=== PATIENT | female | born 1955 | race Caucasian/White ===

== ENCOUNTER 2025-06-16 14:49 | Observation (INO) ==
[2025-06-16] MEDS ORDERED: VANCOMYCIN CONSULT ACTIVE PRN ×3 (16:05→18:39)
--- NOTE | 2025-06-16 16:08 | Emergency Department Note ---
Impression & Plan Cellulitis of right lower extremity, Lower extremity edema, Venous ulcer of right leg ED Provider Note NAME: CAPRICE SONI AGE: 70 SEX: F : 1955 ARRIVES VIA: Walk-In INFORMANT: Patient ED PROVIDER(S): Skip Bergeron DO CHIEF COMPLAINT: Right lower extremity cellulitis HPI: Patient is a 70-year-old female who presents to the ER for right lower extremity cellulitis with an ulcer. She was given a dose of Dalvance while here on the and discharged. It has not improved and consequently she was referred back in for possible repeat dose. Patient denies any headache or change in vision. No chest pain or shortness of breath. No dysuria, urgency or frequency. No other exacerbating or remitting factors. ADDITIONAL HISTORY OBTAINED: Per HPI Chronic Medical/Social Conditions Affecting Care: Per HPI PAST MEDICAL HISTORY:See Below PAST SURGICAL HISTORY:See Below FAMILY HISTORY:See Below SOCIAL HISTORY:See Below HOME MEDICATIONS:See Below ALLERGIES:See Below VITALS:See Below PHYSICAL EXAMINATION: GENERAL: Sitting up in bed, alert, well appearing, well nourished, no distress, non-toxic EYE EXAM: normal conjunctiva. OROPHARYNX: no exudate, no erythema, lips, buccal mucosa, and tongue normal and mucous membranes are moist NECK: supple, no nuchal rigidity, no adenopathy, non-tender LUNGS: Clear to auscultation. Normal chest wall mechanics HEART: no murmurs, S1 normal and S2 normal ABDOMEN: abdomen soft, non-tender, normo-active bowel sounds, no masses, no rebound or guarding. SKIN: Erythema of the right lower extremity with ulcerations within the level of the right medial calf. Skin is warm and tender. Tracks up to just below the knee. UPPER EXTREMITIES: upper extremities are grossly normal. LOWER EXTREMITIES: No pitting edema. NEURO EXAM: Normal sensorium, cranial nerves II-XII grossly intact, normal speech, no gross weakness of arms, no gross weakness of legs. MEDICAL DECISION MAKING: Patient is a 70-year-old female who presents to the ER for cellulitis of her right lower extremity following receiving Dalvance about 7 to 8 days ago. Redness has gotten worse. IV was established and blood work was obtained. Labs showed no significant leukocytosis or anemia. BMP LFTs bilirubin was unremarkable. Discussed with pharmacist and I agree that this likely consistent with a failure of outpatient treatment. She was given IV vancomycin and Rocephin. Updated bedside. Discussed case with the hospitalist for further evaluation management treatment. Consults/Care Managements Discussions: Per MDM Triage Nursing notes reviewed. Limited review of prior medical records performed Vital Signs: reviewed and remarkable for HTN Differential diagnosis: Cellulitis, abscess, MRSA infection, DVT, necrotizing fasciitis, dermatitis, drug eruption, allergic reaction, as well as other pathologies. ER treatment provided: See below Diagnostics interpreted by me include EKG and cardiac monitoring as listed below: -Cardiac Monitoring: An order was placed for continuous cardiac monitoring. The monitor shows a rate of 80 with sinus rhythm. -ECG: none -Laboratory studies:Interpreted by me as stated above in MDM and shown below. Imaging studies: Xrays: As interpreted by me:none CTs show: none Procedures:none Critical Care: None Past Med/Surg History Problem List (Updated 06/16/25 @ 20:01 by Skip Bergeron DO) Leg wound, right (Acute) Cellulitis (Acute) Cellulitis of right lower extremity (Acute) Lower extremity edema (Acute) Venous ulcer of right leg (Acute) Class 3 severe obesity due to excess calories with body mass index (BMI) of 45.0 to 49.9 in adult Chronic pruritic rash in adult Right calf pain Pain and swelling of right lower leg Wound of right leg Medical History FH: bilateral hip replacements Surgical History History of cholecystectomy Family History Mother Breast cancer Sister Breast cancer Denies family history of Ovarian cancer Prostate cancer Myocardial infarction Colorectal cancer Social History Smoking Status: Never smoker Do You Dip or Chew Tobacco: No; Hx Alcohol Use: Yes Alcohol Intake Frequency: 2-3 x/Week Hx Substance Use: No Preferred Language: Israeli Visual Impairment: Limited Hearing Ability: Normal Didactic Instructor Required: No Beliefs That Will Affect Care: None Current Living Situation: Alone Feels Safe at Home: Yes Diet: regular caffeine: Yes Dental Care, Regularly: No Physical Activity Frequency Comment: "when I can" Seatbelt Use: always Sunscreen Use: Yes (occasionally ) Assistive Devices: CPAP and Glasses Allergies Allergies Allergy/AdvReac Type Severity Reaction Status Date / Time ammonia Allergy Unknown IN AIR,ON Unverified 06/16/25 13:14 SKIN-RASH/SOB amoxicillin Allergy Unknown ITCHY,RASH Unverified 06/16/25 13:14 aspirin Allergy Unknown LIGHTHEADED, Verified 06/16/25 13:14 RESP. DIFF Sulfa (Sulfonamide Allergy Unknown ITCHY RASH Unverified 06/16/25 13:14 Antibiotics) tramadol AdvReac Unknown DIZZINESS Unverified 06/16/25 13:14 Home Meds Home Medications Medication Instructions Recorded Confirmed pyridoxine (vitamin B6) 100 mg 100 mg PO DAILY 05/19/25 06/16/25 tablet diphenhydramine HCl 25 mg tablet 25 mg PO TID PRN Allergy Symptoms 06/08/25 06/16/25 (Benadryl Allergy) acetaminophen 650 mg 1,300 mg PO TID 06/13/25 06/16/25 tablet,extended release ascorbic acid (vitamin C) 500 mg 500 mg PO DAILY 06/16/25 06/16/25 capsule (Vitamin C With Hali Hips) beta carotene 30 mg capsule 30 mg PO DAILY 06/16/25 06/16/25 cyanocobalamin (vitamin B-12) 1,000 mcg PO DAILY 06/16/25 06/16/25 1,000 mcg tablet (Vitamin B-12) doxycycline hyclate 100 mg tablet 100 mg PO BID 06/16/25 06/16/25 Previous Rx's Medication Instructions Recorded hydroxyzine HCl 25 mg tablet 25 mg PO TID PRN itching #90 tabs 05/19/25 furosemide 20 mg tablet 20 mg PO DAILY #30 tabs 06/10/25 Results & Data (ED) Vital Signs Vital Signs - 24 hr 06/16/25 15:04 06/16/25 15:51 06/16/25 17:06 Temperature 36.7 C Temperature Source Temporal Artery Scan Pulse Rate 89 Pulse Rate [Finger] 84 Respiratory Rate 18 18 Respiratory Effort / Characteristics Non-Labored Spontaneous Non-Labored Spontaneous Respiratory Depth Normal Normal Respiratory Pattern Regular Regular Blood Pressure 157/89 H Blood Pressure [Right Arm] 172/96 H Blood Pressure Mean 111 Blood Pressure Mean [Right Arm] 121 Pulse Oximetry 97 95 97 Oxygen Delivery Method Room Air Room Air Room Air Sepsis Recent Fever Within 48 Hours No Sepsis New/Unexplained Change in Mental Status N/A Sepsis Action Taken by Nursing No Action Required Laboratory Data 06/16/25 16:20 06/16/25 16:20 Lab Results 06/16/25 Range/Units 16:20 WBC 6.31 (4.8-10.8) K/ul RBC 5.12 (4.20-5.40) M/uL Hgb 14.2 (12.0-16.0) g/dl Hct 43.5 (37.0-47.0) % MCV 85.0 (80.0-100.0) fL MCH 27.7 (25.0-34.0) pg MCHC 32.6 (32.0-36.0) g/dL RDW Std Deviation 44.1 (36.4-46.3) fL RDW Coeff of [place] 14.2 (11.5-14.5) % Plt Count 336 (130-400) K/uL MPV 10.0 (9.4-12.4) fL Immature Gran % (Auto) 0.2 % Neut % (Auto) 46.6 % Lymph % (Auto) 39.3 % [place] % (Auto) 8.2 % Eos % (Auto) 4.6 % Baso % (Auto) 1.1 % Neut # (Auto) 2.94 (1.40-6.50) K/uL Lymph # (Auto) 2.48 (1.20-3.40) K/uL [place] # (Auto) 0.52 (0.11-0.59) K/uL Eos # (Auto) 0.29 (0.00-0.50) K/uL Baso # (Auto) 0.07 (0.00-0.20) K/uL Immature Gran # (Auto) 0.01 (0.01-0.20) K/uL Sodium 141 (136-145) mmol/L Potassium 3.5 (3.5-5.1) mmol/L Chloride 105 (98-107) mmol/L Carbon Dioxide 27 (21-32) mmol/L Anion Gap 9 (3-11) BUN 20 (6-23) mg/dl Creatinine 0.74 (0.6-1.2) mg/dl Est Cr Clr Drug Dosing 89.6 ml/min eGFR 88.07 BUN/Creatinine Ratio 27.0 H (10-20) Glucose 93 (70-99(Fasting)) mg/dl Calcium 9.2 (8.6-10.3) mg/dl Total Bilirubin 0.5 (0.2-1.0) mg/dl AST 24 (13-39) U/L ALT 22 (7-52) U/L Alkaline Phosphatase 88 (34-104) U/L Total Protein 7.9 (6.0-8.3) gm/dl Albumin 4.0 (3.4-5.0) gm/dl Globulin 3.9 (2.5-4.0) gm/dl Albumin/Globulin Ratio 1.0 (0.9-2) Administered Medications Discontinued Medications Ceftriaxone Sodium (Rocephin) 2,000 mg in 50 mls @ 100 mls/hr IV NOW STA Stop: 06/16/25 16:34 Last Infusion: 06/16/25 17:31 Dose: Infused Documented By: Admin: 06/16/25 16:55 Dose: 100 mls/hr [place] [facility] [place]com[place] HCl 2,250 mg/ (Sodium Chloride) 545 mls @ 200 mls/hr IV NOW ONE Stop: 06/16/25 18:48 Last Admin: 06/16/25 17:37 Dose: 200 mls/hr Documented By: BRANDON Discharge Plan Visit Data Chief Complaint: Wound Recheck Stated Complaint: ANTIBIOTIC IV NEEDED FOR WOUND, WOUND CLINIC REF ED Provider: Skip Bergeron Discharge Problem: Cellulitis of right lower extremity, Lower extremity edema, Venous ulcer of right leg Patient Disposition: Admitted As Inpatient Condition: Fair Discharge Instructions Interventions: ED Discharge Assessment Last Done: 06/16/25 18:40
[2025-06-16 16:40] LABS: Hematocrit (blood only) 43.5 % (37.0-47.0); Hemoglobin 14.2 g/dl (12.0-16.0); Immature Granulocytes # (auto) 0.01 K/uL (0.01-0.20); Immature Granulocytes % (auto) 0.2 %; Mean Corpuscular Hemoglobin 27.7 pg (25.0-34.0); Mean Corpuscular Volume 85.0 fL (80.0-100.0); Platelet Count 336 K/uL (130-400); RDW Standard Deviation 44.1 fL (36.4-46.3); Red Blood Count 5.12 M/uL (4.20-5.40); White Blood Count 6.31 K/ul (4.8-10.8)
[2025-06-16] MEDS: cefTRIAXone SODIUM 2,000 MG/50 ML BAG IV STA (16:55)
[2025-06-16 16:57] LABS: Alanine Aminotransferase 22.0 U/L (7-52); Albumin Globulin Ratio 1.0 (0.9-2); Alkaline Phosphatase 88.0 U/L (34-104); Anion Gap 9.0 (3-11); Bilirubin,Total 0.5 mg/dl (0.2-1.0); Blood Urea Nitrogen 20.0 mg/dl (6-23); Calcium 9.2 mg/dl (8.6-10.3); Carbon Dioxide 27.0 mmol/L (21-32); Chloride 105.0 mmol/L (98-107); Creatinine Clr Calc Pharmacy 89.6 ml/min; Globulin 3.9 gm/dl (2.5-4.0); Glucose 93.0 mg/dl (70-99(Fasting)); Potassium 3.5 mmol/L (3.5-5.1); Sodium 141.0 mmol/L (136-145); Total Protein 7.9 gm/dl (6.0-8.3)
--- NOTE | 2025-06-16 17:12 | History & Physical Report ---
Date of Service June 16, 2025 Assessment & Plan (1) Leg wound, right: (2) Cellulitis: (3) Cellulitis of right lower extremity: (4) Lower extremity edema: (5) Venous ulcer of right leg: (6) Class 3 severe obesity due to excess calories with body mass index (BMI) of 45.0 to 49.9 in adult: (7) Chronic pruritic rash in adult: Plan 70 female Super Morbid obesity chronic right lower extremity wound follows with wound care clinic, right lower extremity venous ulcers Hip replacements who presents with worsening of right lower extremity cellulitis. Recently treated with Dalvance for MRSA cellulitis of the RLE On 06/08 in ED here and then discharged thereafter. Worked up in ED with impression of failed Dalvance therapy per ED physician. No signs of sepsis. Empirically given vancomycin and rocephin and admitted to hospitalist service. Chronic wound with worsening MRSA cellulitis failed outpatient Dalvance Supportive care Wound care consultation Follow blood cultures Empirical IV vancomycin Rocephin. Pharmacy for dosing. ID consultation Lower extremity duplex Chronic lower extremity venous stasis ulcers Wound care Dietitian to optimize nutrition DVT prophylaxis Full code Disposition admission anticipate at least 48 hours hospitalization History of Present Illness Chief Complaint: Worsening cellulitis Primary Care Provider: Geneva Hester MD 70 female Super Morbid obesity chronic right lower extremity wound follows with wound care clinic, right lower extremity venous ulcers Hip replacements who presents with worsening of right lower extremity cellulitis. Recently treated with Dalvance for MRSA cellulitis of the RLE On 06/08 in ED here and then discharged thereafter. Worked up in ED with impression of failed Dalvance therapy per ED physician. No signs of sepsis. Empirically given vancomycin and cefepime and admitted to hospitalist service. She denies no systemic symptoms. No fevers chills nausea Malaise anorexia lightheadedness dyspnea or any other symptoms. Awaiting completion of home med rec Allergies Allergy/AdvReac Type Severity Reaction Status Date / Time ammonia Allergy Unknown IN AIR,ON Unverified 06/16/25 13:14 SKIN-RASH/SOB amoxicillin Allergy Unknown ITCHY,RASH Unverified 06/16/25 13:14 aspirin Allergy Unknown LIGHTHEADED, Verified 06/16/25 13:14 RESP. DIFF Sulfa (Sulfonamide Allergy Unknown ITCHY RASH Unverified 06/16/25 13:14 Antibiotics) tramadol AdvReac Unknown DIZZINESS Unverified 06/16/25 13:14 Home Medications Medication Instructions Recorded Confirmed Type ascorbic acid (vitamin C) [Vitamin 1 tab PO DAILY 05/19/25 06/16/25 History C With Hali Hips] beta carotene 1 cap PO QAM 05/19/25 06/16/25 History hydroxyzine HCl 25 mg tablet 25 mg PO TID PRN itching #90 tabs 05/19/25 06/16/25 Rx mecobalamin (vitamin B12) 2 tab PO DAILY 05/19/25 06/16/25 History pyridoxine (vitamin B6) 100 mg 100 mg PO DAILY 05/19/25 06/16/25 History tablet Benadryl Allergy 0 mg PO Q4H PRN allergies 06/08/25 06/16/25 History furosemide 20 mg tablet 20 mg PO DAILY #30 tabs 06/10/25 06/16/25 Rx acetaminophen 650 mg 1,300 mg PO TID 06/13/25 06/16/25 History tablet,extended release Past Med/Surg History Problem List Leg wound, right (Acute) Cellulitis (Acute) Cellulitis of right lower extremity (Acute) Lower extremity edema (Acute) Venous ulcer of right leg (Acute) Class 3 severe obesity due to excess calories with body mass index (BMI) of 45.0 to 49.9 in adult Chronic pruritic rash in adult Right calf pain Pain and swelling of right lower leg Wound of right leg Medical History FH: bilateral hip replacements Surgical History History of cholecystectomy Family History Mother Breast cancer Sister Breast cancer Denies family history of Ovarian cancer Prostate cancer Myocardial infarction Colorectal cancer Social History Smoking Status: Never smoker Do You Dip or Chew Tobacco: No; Hx Alcohol Use: Yes Alcohol Intake Frequency: 2-3 x/Week Hx Substance Use: No Preferred Language: Turkmen Visual Impairment: Limited Hearing Ability: Normal Nutrition Professor Required: No Beliefs That Will Affect Care: None Current Living Situation: Alone Feels Safe at Home: Yes Diet: regular caffeine: Yes Dental Care, Regularly: No Physical Activity Frequency Comment: "when I can" Seatbelt Use: always Sunscreen Use: Yes (occasionally ) Assistive Devices: CPAP and Glasses Review of Systems Review of Systems: Negative except as in HPI Physical Exam Physical Exam: The patient's vital signs were reviewed. She is afebrile, hypertensive. She is asymptomatic with this. Wound #1 is a clustered measurement of venous ulcers measuring 5.8 x 8.5 x 0.2 cm. This is an 52 % decrease in total surface area since last visit. Wounds are covered with eschar and slough. Moderate drainage. No odor. Periwound area is markedly erythematous, hot to touch. In addition the patient also has evidence of contact dermatitis more proximal to the wound. Leg is markedly edematous right lower extremity with ulcerations within the level of the right medial calf. Results & Data Results & Data Vital Signs (Past 12 Hours) Vital Signs Temp Pulse Pulse Resp BP BP Pulse Ox 06/16/25 17:06 97 06/16/25 15:51 84 18 172/96 H 95 06/16/25 15:04 36.7 C 89 18 157/89 H 97 O2 Del Method 06/16/25 17:06 Room Air 06/16/25 15:51 Room Air 06/16/25 15:04 Room Air Laboratory Results Abnormal Labs 06/16/25 16:20 BUN/Creatinine Ratio 27.0 H PG Care Time/CCT Total # of Minutes Spent Total Time Spent with Patient: Total time spent is greater than 50% in coordination of care (as documented) at patient's floor/unit and/or counseling patient: Coding Level of Care Code 41584 INT INP/OBS CARE 2/55MIN Diagnoses Leg wound, right S81.801A Encounter type: initial encounter Cellulitis L03.115 Laterality: right Site of cellulitis: extremity Site of cellulitis of extremity: lower extremity Cellulitis of right lower extremity L03.115 Lower extremity edema R60.0 Venous ulcer of right leg I83.019; L97.919 Class 3 severe obesity due to excess calories with body mass index (BMI) of 45.0 to 49.9 in adult E66.813; Z68.42 Chronic 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 (1) Leg wound, right Encounter type: initial encounter Qualified Code(s): S81.801A - Unspecified open wound, right lower leg, initial encounter (2) Cellulitis Laterality: right Site of cellulitis: extremity Site of cellulitis of extremity: lower extremity Qualified Code(s): L03.115 - Cellulitis of right lower limb
[2025-06-16] MEDS: VANCOMYCIN HCL 2,250 MG in SODIUM CHLORIDE 0.9% 500 ML IV ONE (17:37)
[2025-06-16] MEDS ORDERED: ONDANSETRON INJ 2 MG/ML 2 ML VIAL IV PRN (18:39)
[2025-06-16] MEDS ORDERED: MAGNESIUM HYDROXIDE SUSP 30 ML UDC PO PRN (18:39)
[2025-06-16] MEDS ORDERED: ALUMINUM/MAGNESIUM SUSP 30 ML UDC PO PRN (18:39)
[2025-06-16] MEDS ORDERED: POLYETHYLENE (MIRALAX) 17 GM PACK PO PRN (18:39)
--- NOTE | 2025-06-16 19:30 | Pharmacy Report ---
Pharmacy PK ABX Note - Date of Service June 16, 2025 - Assessment and Plan Assessment 70 year old F started on vancomycin and rocephin for LE cellulitis. Follows with wound care clinic, recently treated with Dalvance for MRSA cellulitis on 06/08. ID consulted. Plan Vancomycin * Loading dose: 2250 mg IV x 1 * Maintenance dose: 1000 mg IV every 12 hours * Regimen is predicted to achieve target AUC/OSCAR of 400-600 mg/L.hr * Will plan to collect vancomycin level if continued >48 hours Pharmacy will continue to follow and will adjust dose/frequency as necessary. Thank you. Pharmacy has transitioned to AUC monitoring for vancomycin. AUC/OSCAR is the preferred PK/PD target and is associated with decreased risk of nephrotoxicity compared to traditional trough targets.
[2025-06-16] MEDS: ENOXAPARIN INJ 40 MG/0.4 ML SYR SQ SCH (20:50)
[2025-06-16 21:07] LABS: Hematocrit (blood only) 44.4 % (37.0-47.0); Hemoglobin 14.9 g/dl (12.0-16.0); Mean Corpuscular Hemoglobin 28.8 pg (25.0-34.0); Mean Corpuscular Volume 85.7 fL (80.0-100.0); Platelet Count 353 K/uL (130-400); RDW Standard Deviation 44.6 fL (36.4-46.3); Red Blood Count 5.18 M/uL (4.20-5.40); White Blood Count 6.61 K/ul (4.8-10.8)
[2025-06-16] MEDS: diphenhydrAMINE Capsule 25 MG CAP PO PRN (21:24)
[2025-06-16 21:27] LABS: Alanine Aminotransferase 23.0 U/L (7-52); Albumin Globulin Ratio 1.0 (0.9-2); Alkaline Phosphatase 87.0 U/L (34-104); Anion Gap 10.0 (3-11); Bilirubin,Total 0.4 mg/dl (0.2-1.0); Blood Urea Nitrogen 17.0 mg/dl (6-23); Calcium 9.2 mg/dl (8.6-10.3); Carbon Dioxide 25.0 mmol/L (21-32); Chloride 107.0 mmol/L (98-107); Creatinine Clr Calc Pharmacy 88.4 ml/min; Globulin 4.0 gm/dl (2.5-4.0); Glucose 115.0 mg/dl (70-99(Fasting)); Potassium 3.2 mmol/L (3.5-5.1); Sodium 142.0 mmol/L (136-145); Total Protein 8.1 gm/dl (6.0-8.3)
[2025-06-16] MEDS: ACETAMINOPHEN 325 MG TAB PO PRN (22:54)
[2025-06-16 23:04] VITALS: RESP 18
[2025-06-17] MEDS: VANCOMYCIN HCL / NSS 1,000 MG/270 ML BAG IV SCH (00:24)
--- NOTE | 2025-06-17 01:22 | Ultrasound Report ---
Exam(s): US VENOUS BILATERAL LOWER EXTREMITIES EXAM: US Duplex Bilateral Lower Extremities Veins CLINICAL HISTORY: Reason for exam: r/o clots. TECHNIQUE: Real-time duplex ultrasound scan of the bilateral lower extremity veins integrating B-mode two-dimensional vascular structure, Doppler spectral analysis, color flow Doppler imaging and compression. COMPARISON: US Duplex Lower Extremity Veins dated 05/19/2025 right lower extremity venous ultrasound FINDINGS: Right deep veins: Unremarkable. No DVT in the right common femoral, femoral, proximal deep femoral or popliteal veins. The veins demonstrate normal color flow, are normally compressible, with normal phasic flow and/or augmentation response. Right superficial veins: Unremarkable. No thrombus in the visualized right great saphenous vein. Left deep veins: Unremarkable. No DVT in the left common femoral, femoral, proximal deep femoral or popliteal veins. The veins demonstrate normal color flow, are normally compressible, with normal phasic flow and/or augmentation response. Left superficial veins: Unremarkable. No thrombus in the visualized left great saphenous vein. Soft tissues: Bilateral calf edema. No popliteal cyst. IMPRESSION: No DVT in bilateral lower extremities. Electronically signed by: Jimi Rock M.D. 06/17/25 01:21 AM
[2025-06-17 06:41] LABS: Hematocrit (blood only) 36.8 % (37.0-47.0); Hemoglobin 12.6 g/dl (12.0-16.0); Mean Corpuscular Hemoglobin 28.8 pg (25.0-34.0); Mean Corpuscular Volume 84.2 fL (80.0-100.0); Platelet Count 302 K/uL (130-400); RDW Standard Deviation 43.8 fL (36.4-46.3); Red Blood Count 4.37 M/uL (4.20-5.40); White Blood Count 6.51 K/ul (4.8-10.8)
[2025-06-17 07:08] LABS: Alanine Aminotransferase 18.0 U/L (7-52); Albumin Globulin Ratio 1.2 (0.9-2); Alkaline Phosphatase 66.0 U/L (34-104); Anion Gap 6.0 (3-11); Bilirubin,Total 0.4 mg/dl (0.2-1.0); Blood Urea Nitrogen 16.0 mg/dl (6-23); Calcium 8.6 mg/dl (8.6-10.3); Carbon Dioxide 25.0 mmol/L (21-32); Chloride 109.0 mmol/L (98-107); Creatinine Clr Calc Pharmacy 90.6 ml/min; Globulin 3.0 gm/dl (2.5-4.0); Glucose 104.0 mg/dl (70-99(Fasting)); Potassium 3.8 mmol/L (3.5-5.1); Sodium 140.0 mmol/L (136-145); Total Protein 6.5 gm/dl (6.0-8.3)
[2025-06-17 07:25] VITALS: BP 147/93; PULSE 86; TEMP 97.9; O2SAT 95
--- NOTE | 2025-06-17 11:52 | Hospitalist Progress Note ---
Date of Service June 17, 2025 Assessment & Plan (1) Leg wound, right: (2) Cellulitis: (3) Cellulitis of right lower extremity: (4) Lower extremity edema: (5) Venous ulcer of right leg: (6) Class 3 severe obesity due to excess calories with body mass index (BMI) of 45.0 to 49.9 in adult: (7) Chronic pruritic rash in adult: Plan 70 female Super Morbid obesity chronic right lower extremity wound follows with wound care clinic, right lower extremity venous ulcers Hip replacements who presents with worsening of right lower extremity cellulitis. Recently treated with Dalvance for MRSA cellulitis of the RLE On 06/08 in ED here and then discharged thereafter. Worked up in ED with impression of failed Dalvance therapy per ED physician. No signs of sepsis. Empirically given vancomycin and rocephin and admitted to hospitalist service. Chronic wound with worsening MRSA cellulitis failed outpatient Dalvance Supportive care Wound care consultation Blood cultures NTD Empirical IV vancomycin Rocephin. Pharmacy for dosing. ID consultation Lower extremity duplex Negative Chronic lower extremity venous stasis ulcers Wound care Dietitian to optimize nutrition DVT prophylaxis Full code Disposition Likely discharge home in 1 to 2 days Admission and Anticipated Discharge Date Admission Date: June 16, 2025 Subjective Feels like she is doing better. She shows me cellulitis is improving in right leg. No fevers chills nausea or any other symptoms. Discussed case with ID attending Review of Systems Review of Systems: Negative except as in HPI Physical Exam Physical Exam: The patient's vital signs were reviewed. She is afebrile, hypertensive. She is asymptomatic with this. Wound #1 is a clustered measurement of venous ulcers measuring 5.8 x 8.5 x 0.2 cm. This is an 52 % decrease in total surface area since last visit. Wounds are covered with eschar and slough. Moderate drainage. No odor. Periwound area is markedly erythematous, hot to touch. In addition the patient also has evidence of contact dermatitis more proximal to the wound. Leg is markedly edematous right lower extremity with ulcerations within the level of the right medial calf. Results & Data Results & Data Vital Signs (Past 12 Hours) Vital Signs Temp Pulse Resp BP Pulse Ox O2 Del Method 06/17/25 07:43 Room Air 06/17/25 07:24 36.6 C 86 18 147/93 H 95 Room Air PG Care Time/CCT Total # of Minutes Spent Total Time Spent with Patient: Total time spent is greater than 50% in coordination of care (as documented) at patient's floor/unit and/or counseling patient: Coding Level of Care Code 07174 SUB INP/OBS CARE 2/35MIN Diagnoses Leg wound, right S81.801A Encounter type: initial encounter Cellulitis L03.115 Laterality: right Site of cellulitis: extremity Site of cellulitis of extremity: lower extremity Cellulitis of right lower extremity L03.115 Lower extremity edema R60.0 Venous ulcer of right leg I83.019; L97.919 Class 3 severe obesity due to excess calories with body mass index (BMI) of 45.0 to 49.9 in adult E66.813; Z68.42 Chronic 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 (1) Leg wound, right Encounter type: initial encounter Qualified Code(s): S81.801A - Unspecified open wound, right lower leg, initial encounter (2) Cellulitis Laterality: right Site of cellulitis: extremity Site of cellulitis of extremity: lower extremity Qualified Code(s): L03.115 - Cellulitis of right lower limb
--- NOTE | 2025-06-17 13:03 | Infectious Disease Consult ---
Date of Consultation June 17, 2025 Assessment & Plan (1) Cellulitis of right lower extremity: (2) Leg wound, right: Plan Problems: #RLE cellulitis Micro: 06/16 BCx x2: pending 06/08 RLE wound cx: MRSA (S tetra, TMP/SMX) 06/01 RLE wound cx: MRSA (S tetra, TMP/SMX) Abx: Vanc 06/16 - present Ceftriaxone 06/16 - present Dalbavancin 1500 mg x 1 06/08 70 yo F with obesity, bilateral hip replacements who presented on 06/16 with concern for worsened RLE cellulitis and a second dose of dalbavancin. She was initially seen in the ED on 05/09 for RLE erythema for which she was concerned for an allergic reaction to ammonia. Noted itching of her RLE, and tried putting rubbing alcohol on her RLE. There was concern for developing RLE and she was prescribed cephalexin 500 mg PO QID x 7 days. She was then seen on 05/19 in primary care clinic with concern for RLE cellulitis vs contact dermatitis, and was prescribed doxycycline 100 mg PO BID x 10 days. Venous doppler was negative for DVT. She was seen again in primary care clinic on 05/25 for follow-up, where erythema was noted to be improved and she was referred to wound care clinic. She was first seen in wound care clinic on 06/01 for RLE venous ulcer. The wound was debrided and cultured, and grew MRSA susceptible to tetracycline. She was again seen in wound care clinic 06/08 at which time wounds appeared to have deteriorated, with worsened cellulitis. She was advised to present to the ED, where her vitals were stable and she had no leukocytosis with WBC 7.3. She was given a dose of dalbavance 1500 mg x 1 and discharged. She was seen in wound care clinic again on 06/16, where it was noted that her wounds and cellulitis were improved, although with continued erythema/induration. She was advised to present to the ED for a second dose of dalbavancin. On presentation, pt was afebrile, VSS. Labs showed WBC 6.6. Venous doppler without DVT. She was started on ceftriaxone and vancomycin. Pt reports improvement today. Discussion: Dalbavancin 1500 mg IV X 1 is very effective for MRSA/gram positive cellulitis, and remains in the system for ~2 week course of treatment. I spoke with Dr. Ambar Arcos of wound care clinic, who saw the pt on 06/08 and 06/16, and she felt that the RLE had improved in appearance. We discussed that one dose of dalbavancin 1500 mg is sufficient for a 2 week course of treatment for skin/soft tissue infection, and that no second dose was needed to complete her course. Recommendations: - Do not think pt requires further antibiotics for treatment of the RLE cellulitis. Appears to be improved on pictures from 06/16 and 06/17, compared to 06/08. She has received 1 dose of dalbavancin 1500 mg which will remain in her system for 2 weeks Will sign off. Consultation Information This patient recommendation is based on a telemedicine consult request which was completed asynchronously through chart review and information provided by the primary physician. The patient was not seen or examined today. The evaluation is consultative in nature and all patient care and treatment decisions can either be accepted or rejected by the patient's primary hospital-based treating physician using their own independent medical judgment for their patient. Electrical System Specialist contact information: Please call [facility] . (Phone Number For Physician Use Only) Time Spent Reviewing Chart: 31+ minutes History of Present Illness Reason for Consultation: LE cellulitis Attending Physician: Mary Heredia MD History of Present Illness 70 yo F with obesity, chronic RLE venous ulcer for which she follows with the wound care clinic, bilateral hip replacements who presented on 06/16 with concern for worsened RLE cellulitis. She was seen in the ED on 05/09 for RLE erythema for which she was concerned for an allergic reaction to ammonia. Noted itching of her RLE, and tried putting rubbing alcohol on her RLE. There was concern for developing RLE and she was prescribed cephalexin 500 mg PO QID x 7 days. She was then seen on 05/19 in primary care clinic with concern for RLE cellulitis vs contact dermatitis, and was prescribed doxycycline 100 mg PO BID x 10 days. Venous doppler was negative for DVT. She was seen again in primary care clinic on 05/25 for follow-up, where erythema was noted to be improved and she was referred to wound care clinic. She was first seen in wound care clinic on 06/01 for RLE venous ulcer. The wound was debrided and cultured, and grew MRSA susceptible to tetracycline. She was again seen in wound care clinic 06/08 at which time wounds appeared to have deteriorated, with worsened cellulitis. She was advised to present to the ED. She presented to the ED 06/08, where she noted initial improvement in the cellulitis, but it worsened again. Her vitals were stable and she had no leukocytosis with WBC 7.3. She was given a dose of dalbavance 1500 mg x 1 and discharged. She was seen in wound care clinic again on 06/16, where it was noted that her wounds and cellulitis were improved, although with continued erythema/induration. She was advised to present to the ED for a second dose of dalbavancin. On presentation, pt was afebrile, VSS. Labs showed WBC 6.6. Venous doppler without DVT. She was started on ceftriaxone and vancomycin. Pt reports improvement today. Allergies Allergy/AdvReac Type Severity Reaction Status Date / Time ammonia Allergy Unknown IN AIR,ON Unverified 06/16/25 13:14 SKIN-RASH/SOB amoxicillin Allergy Unknown ITCHY,RASH Unverified 06/16/25 13:14 aspirin Allergy Unknown LIGHTHEADED, Verified 06/16/25 13:14 RESP. DIFF Sulfa (Sulfonamide Allergy Unknown ITCHY RASH Unverified 06/16/25 13:14 Antibiotics) tramadol AdvReac Unknown DIZZINESS Unverified 06/16/25 13:14 Home Medications Medication Instructions Recorded Confirmed Type hydroxyzine HCl 25 mg tablet 25 mg PO TID PRN itching #90 tabs 05/19/25 06/16/25 Rx pyridoxine (vitamin B6) 100 mg 100 mg PO DAILY 05/19/25 06/16/25 History tablet diphenhydramine HCl 25 mg tablet 25 mg PO TID PRN Allergy Symptoms 06/08/25 06/16/25 History (Benadryl Allergy) furosemide 20 mg tablet 20 mg PO DAILY #30 tabs 06/10/25 06/16/25 Rx acetaminophen 650 mg 1,300 mg PO TID 06/13/25 06/16/25 History tablet,extended release ascorbic acid (vitamin C) 500 mg 500 mg PO DAILY 06/16/25 06/16/25 History capsule (Vitamin C With Hali Hips) beta carotene 30 mg capsule 30 mg PO DAILY 06/16/25 06/16/25 History cyanocobalamin (vitamin B-12) 1,000 mcg PO DAILY 06/16/25 06/16/25 History 1,000 mcg tablet (Vitamin B-12) doxycycline hyclate 100 mg tablet 100 mg PO BID 06/16/25 06/16/25 History Patient History Medical History FH: bilateral hip replacements Surgical History History of cholecystectomy Family History Mother Breast cancer Sister Breast cancer Denies family history of Ovarian cancer Prostate cancer Myocardial infarction Colorectal cancer Social History Smoking Status: Never smoker Second Hand Exposure: No; Do You Dip or Chew Tobacco: No; Tobacco Cessation Education Requested by Patient: No Hx Alcohol Use: Yes Alcohol type: wine Alcohol Intake Frequency: 2-3 x/Week Hx Substance Use: No Preferred Language: Arabic Communication Ability: Effective Visual Impairment: Limited Hearing Ability: Normal Pcu Rn Required: No Beliefs That Will Affect Care: None Current Living Situation: Alone Other Information That Helps Us Care for You: No Feels Safe at Home: Yes Safety Concerns: Feels Safe At This Time Diet: regular caffeine: Yes Dental Care, Regularly: No Physical Activity Frequency Comment: "when I can" Seatbelt Use: always Sunscreen Use: Yes (occasionally ) Assistive Devices: Glasses Results & Data Vital Signs (Past 12 Hours) Vital Signs Temp Pulse Resp BP Pulse Ox O2 Del Method 06/17/25 07:43 Room Air 06/17/25 07:24 36.6 C 86 18 147/93 H 95 Room Air Laboratory Results Short CBC 06/16/25 06/16/25 06/17/25 Range/Units 16:20 20:02 06:22 WBC 6.31 6.61 6.51 (4.8-10.8) K/ul Hgb 14.2 14.9 12.6 (12.0-16.0) g/dl Hct 43.5 44.4 36.8 L (37.0-47.0) % Plt Count 336 353 302 (130-400) K/uL BMP 06/16/25 06/16/25 06/17/25 16:20 20:02 06:22 Sodium 141 142 140 Potassium 3.5 3.2 L 3.8 Chloride 105 107 109 H Carbon Dioxide 27 25 25 BUN 20 17 16 Creatinine 0.74 0.75 0.73 Glucose 93 115 H 104 H Calcium 9.2 9.2 8.6 Liver Function 06/16/25 06/16/25 06/17/25 Range/Units 16:20 20:02 06:22 Total Bilirubin 0.5 0.4 0.4 (0.2-1.0) mg/dl AST 24 25 20 (13-39) U/L ALT 22 23 18 (7-52) U/L Alkaline Phosphatase 88 87 66 (34-104) U/L Albumin 4.0 4.1 3.5 (3.4-5.0) gm/dl Medications Administered Current Inpatient Medications Acetaminophen (Acetaminophen 325 Mg Tab) 650 mg PO Q4H PRN PRN Reason: pain/fever Stop: 07/16/25 18:38 Last Admin: 06/17/25 07:29 Dose: 650 mg Al Hydrox/Mg Hydrox/Simethicone (Aluminum/Magnesium Susp 30 Ml Udc) 30 ml PO Q6H PRN PRN Reason: Dyspepsia Stop: 07/16/25 18:38 Diphenhydramine HCl (Diphenhydramine Capsule 25 Mg Cap) 25 mg PO Q8H PRN PRN Reason: Rash Stop: 07/16/25 19:57 Last Admin: 06/17/25 07:29 Dose: 25 mg Enoxaparin Sodium (Enoxaparin Inj 40 Mg/0.4 Ml Syr) 40 mg SQ Q12H JIMY Stop: 07/16/25 20:59 Last Admin: 06/17/25 07:30 Dose: 40 mg Vancomycin HCl (Vancomycin Hcl) 1,000 mg in 270 mls @ 200 mls/hr IV Q12H JIMY; Protocol Stop: 06/24/25 00:00 Last Infusion: 06/17/25 02:03 Dose: Infused Ceftriaxone Sodium (Rocephin) 2,000 mg in 50 mls @ 100 mls/hr IV Q24H JIMY Stop: 06/23/25 16:59 Magnesium Hydroxide (Magnesium Hydroxide Susp 30 Ml Udc) 30 ml PO Q6H PRN PRN Reason: Constipation Stop: 07/16/25 18:38 Miscellaneous Information (Vancomycin Consult Active) 1 each N/A UD PRN PRN Reason: Consult Stop: 07/16/25 18:38 Ondansetron HCl (Ondansetron Inj 2 Mg/Ml 2 Ml Vial) 4 mg IV Q6H PRN PRN Reason: Nausea Stop: 07/16/25 18:38 Polyethylene Glycol (Polyethylene (Miralax) 17 Gm Pack) 17 gm PO DAILY PRN PRN Reason: Constipation Stop: 07/16/25 18:38 (2) Leg wound, right Encounter type: initial encounter Qualified Code(s): S81.801A - Unspecified open wound, right lower leg, initial encounter
--- NOTE | 2025-06-17 13:55 | Discharge Summary ---
Discharge Summary Date of Service June 17, 2025 Principal Dx & Hospital Course #1 = Principal Diagnosis (1) Leg wound, right: (2) Cellulitis: (3) Cellulitis of right lower extremity: (4) Lower extremity edema: (5) Venous ulcer of right leg: (6) Class 3 severe obesity due to excess calories with body mass index (BMI) of 45.0 to 49.9 in adult: (7) Chronic pruritic rash in adult: Plan 70 female Super Morbid obesity chronic right lower extremity wound follows with wound care clinic, right lower extremity venous ulcers Hip replacements who presents with worsening of right lower extremity cellulitis. Recently treated with Dalvance for MRSA cellulitis of the RLE On 06/08 in ED here and then discharged thereafter. Worked up in ED with impression of failed Dalvance therapy per ED physician. No signs of sepsis. Empirically given vancomycin and rocephin and admitted to hospitalist service. Chronic wound with worsening MRSA cellulitis failed outpatient Dalvance Supportive care Wound care consultation Blood cultures NTD Empirical IV vancomycin Rocephin. Pharmacy for dosing. ID consultation Lower extremity duplex Negative Discussed the case with ID extensively this afternoon Via secure chat. ID cleared for discharge. Antibiotics discontinued. Dalvance should be effective for up to 2 weeks including for MRSA cellulitis. Can follow-up outpatient closely with PCP, ID if needed. Chronic lower extremity venous stasis ulcers Wound care Dietitian to optimize nutrition DVT prophylaxis Full code Disposition home Admission HPI Per Admitting Provider 70 female Super Morbid obesity chronic right lower extremity wound follows with wound care clinic, right lower extremity venous ulcers Hip replacements who presents with worsening of right lower extremity cellulitis. Recently treated with Dalvance for MRSA cellulitis of the RLE On 06/08 in ED here and then discharged thereafter. Worked up in ED with impression of failed Dalvance therapy per ED physician. No signs of sepsis. Empirically given vancomycin and cefepime and admitted to hospitalist service. She denies no systemic symptoms. No fevers chills nausea Malaise anorexia lightheadedness dyspnea or any other symptoms. Awaiting completion of home med rec Discharge Exam The patient's vital signs were reviewed. She is afebrile, hypertensive. She is asymptomatic with this. Wound #1 is a clustered measurement of venous ulcers measuring 5.8 x 8.5 x 0.2 cm. This is an 52 % decrease in total surface area since last visit. Wounds are covered with eschar and slough. Moderate drainage. No odor. Periwound area is markedly erythematous, hot to touch. In addition the patient also has evidence of contact dermatitis more proximal to the wound. Leg is markedly edematous right lower extremity with ulcerations within the level of the right medial calf. Discharge Plan Discharge Items Patient Disposition: Home - Self-Care Reason For Visit: CELLULITIS Discharge Diagnosis: Cellulitis Condition on Discharge: Fair Activity: Resume your previous activity Non-emergency contact: Primary Care Provider Call non-emergency contact if: you have any medication questions, your symptoms worsen, your pain is not controlled and you have a fever Follow-up/Referrals: Geneva Hester MD [Primary Care Provider] - Diet: Carb Consistent or DM2, Heart Healthy and Low Fat Addtl Attending Provider Instructions: Follow-up with your primary care doctor in 3 to 5 days Pending Studies at Discharge: No Stand-Alone Forms: My [employer], Smoking Cessation Medications and DC Order Prescriptions: Continued pyridoxine (vitamin B6) 100 mg tablet 100 mg PO DAILY hydroxyzine HCl 25 mg tablet 25 mg PO TID PRN (Reason: itching) Qty: 90 3RF furosemide 20 mg tablet 20 mg PO DAILY Qty: 30 0RF cyanocobalamin (vitamin B-12) [Vitamin B-12] 1,000 mcg Tablet 1,000 mcg PO DAILY Patient Comments: OTC beta carotene 30 mg Capsule 30 mg PO DAILY ascorbic acid (vitamin C) [Vitamin C With Hali Hips] 500 mg Capsule 500 mg PO DAILY diphenhydramine HCl [Benadryl Allergy] 25 mg Tablet 25 mg PO TID PRN (Reason: Allergy Symptoms) acetaminophen 650 mg tablet extended release 1,300 mg PO TID Discontinued doxycycline hyclate 100 mg tablet 100 mg PO BID Rx Instructions: Start Date 06/03/25 x14 day supply Discharge Orders: Discharge Order (Routine); Ordered 06/17/25 Ordered By: Mary Heredia Admission Data Admit Date/Time: 06/16/25 17:21 Attending Provider: Mary Heredia Admit Provider: Mary Heredia Primary Care Provider: Geneva Hester Other Providers: Manuel Ortez; Philomena Pride; Gloria Alvarado; Annia Huntley; Tala Marie; Susan Chen; Bibi Styles Hospital Stay Data Consultations 06/16/25 16:52 ED Decision to Admit Stat 06/16/25 18:39 Consult Infectious Diseases Routine Diagnostic Imagining Performed 06/16/25 18:39 US venous duplex leg [US venous doppler LE BI] Routine Pending Results Patient Have Any Pending Studies at Discharge: No Discharge Instructions Given to Patient (Per Discharging Provider) Follow-up with your primary care doctor in 3 to 5 days Total Time Total Time Spent Total Time Spent (In Minutes): 35 Coding Level of Care Code 39599 INP/OBS DISCH >30 MIN Diagnoses Leg wound, right S81.801A Encounter type: initial encounter Cellulitis L03.115 Laterality: right Site of cellulitis: extremity Site of cellulitis of extremity: lower extremity Cellulitis of right lower extremity L03.115 Lower extremity edema R60.0 Venous ulcer of right leg I83.019; L97.919 Class 3 severe obesity due to excess calories with body mass index (BMI) of 45.0 to 49.9 in adult E66.813; Z68.42 Chronic 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
[2025-06-17] MEDS ORDERED: cefTRIAXone SODIUM 2,000 MG/50 ML BAG IV SCH (17:00)
== END 2025-06-17 16:32 | disposition home or self-care (01) | DRG 603 ==
LOC: ED 14:49 → INTOOBSV 17:21 → 3W 17:21